=== PATIENT | male | born 1990 | race American Indian/Alaskan Native ===

== ENCOUNTER 2016-11-01 21:43 | Emergency (ER) | payer OTHER ==
[2016-11-01 22:32] VITALS: BP 134/79
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
== END 2016-11-02 06:18 | disposition home or self-care (01) ==
LOC: ED 21:43
DX: S86.912A Strain of unspecified muscle(s) and tendon(s) at lower leg level, left leg, initial encounter (principal); R68.84 Jaw pain; F17.200 Nicotine dependence, unspecified, uncomplicated; V47.6XXA Car passenger injured in collision with fixed or stationary object in traffic accident, initial encounter; Y93.89 Activity, other specified; Y99.8 Other external cause status; Y92.89 Other specified places as the place of occurrence of the external cause
CPT/HCPCS: 70486